=== PATIENT | female | born 1990 | race Caucasian/White ===

== ENCOUNTER 2020-01-22 13:03 | Emergency (ER) | payer BC ==
[~2020-01-22] VITALS: Ht 157.5 cm; Wt 70.0 kg
--- NOTE | 2020-01-22 14:00 | NUR ---
Lynda GUZMAN at bedside.
--- NOTE | 2020-01-22 14:10 | NUR ---
Reina - [facility] - [phone] for updates.
[2020-01-22 14:30] LABS: BASOPHILS % (AUTO) 0.3 % (0-1); EOSINOPHILS % (AUTO) 0.5 % (0-6); HEMATOCRIT 37.9 % (35.0-45.0); HEMOGLOBIN 12.4 g/dl (12.0-16.0); LYMPHOCYTES # (AUTO) 1.3 X10'3 (1.1-4.8); LYMPHOCYTES % (AUTO) 13.9 % (21-51); MEAN CORPUSCULAR HEMOGLOBIN 29.1 PG (27.0-31.0); MEAN CORPUSCULAR HGB CONC 32.8 g/dL (33.0-36.5); MEAN CORPUSCULAR VOLUME 88.9 FL (78-98); MEAN PLATELET VOLUME 8.4 FL (7.4-10.4); MONOCYTES # (AUTO) 0.4 X10'3 (0-0.9); MONOCYTES % (AUTO) 4.3 % (2-12); NEUTROPHILS # (AUTO) 7.4 X10'3 (1.8-7.7); PLATELET COUNT 337 X10'3 (140-440); RED BLOOD COUNT 4.27 X10'6 (4.20-5.60); RED CELL DISTRIBUTION WIDTH 13.6 % (11.5-14.5); WHITE BLOOD COUNT 9.1 X10'3 (4.5-11.0)
[2020-01-22 14:46] LABS: ALANINE AMINOTRANSFERASE 23 U/L (12-78); ALBUMIN 3.2 G/DL (3.4-5.0); ALBUMIN/GLOBULIN RATIO 0.9 (1.1-1.5); ALKALINE PHOSPHATASE 71 IU/L (46-116); ANION GAP 7 (8-16); ASPARTATE AMINO TRANSFERASE 13 U/L (10-37); BILIRUBIN,TOTAL 0.5 MG/DL (0.1-1.0); BLOOD UREA NITROGEN 9 MG/DL (7-18); BUN/CREATININE RATIO 13.4 (6.6-38.0); CALCIUM 9.1 MG/DL (8.5-10.1); CHLORIDE 105 MMOL/L (99-107); CREATININE 0.67 MG/DL (0.40-0.90); GLUCOSE 158 MG/DL (70-104); SODIUM 137 MMOL/L (135-145); TOTAL CARBON DIOXIDE 24.6 MMOL/L (24-32); TOTAL PROTEIN 6.9 G/DL (6.4-8.2); eGFR > 90 ML/MIN
--- NOTE | 2020-01-22 14:54 | NUR ---
US in at bedside.
--- NOTE | 2020-01-22 15:00 | NUR ---
patient up to the bathroom.
--- NOTE | 2020-01-22 15:03 | NUR ---
Pt up to restroom.
[2020-01-22 15:11] LABS: LIPASE 89 U/L (73-393)
[2020-01-22 15:19] LABS: BETA HCG,QUANTITATIVE 20810 mIU/ml
[2020-01-22 15:53] LABS: CLARITY,URINE SLIGHTLY CLOUDY (Clear); COLOR,URINE YELLOW (Yellow); GLUCOSE, URINE >=1000 mg/dl (Neg); KETONES,URINE 15 mg/dl (Neg); LEUKOCYTE ESTERASE ,URINE SMALL (Neg); NITRITES, URINE NEGATIVE (Neg); OCCULT BLOOD,URINE SMALL (Neg); PH,URINE 7.5 (4.8-8.0); PROTEIN,URINE NEGATIVE (Neg); URINE HCG POSITIVE (NEG); UROBILINOGEN,URINE 0.2 E.U/dL (0.2-1.0)
[2020-01-22 16:04] LABS: UA COLLECTION TYPE CLN CATCH MIDSTREAM
[2020-01-22 16:09] LABS: BACTERIA,URINE FEW /HPF (Neg); RBC,URINE 0-2 /HPF (0-2); SQUAMOUS EPITHELIAL CELL,UR MANY /LPF (FEW)
--- NOTE | 2020-01-22 16:11 | NUR ---
UA REJECTED FOR CULTURE
[2020-01-22] MEDS ORDERED: CEPH500C5 PO (16:15)
[2020-01-22 16:41] VITALS: BP 112/70
== END 2020-01-22 16:43 | disposition home or self-care (01) ==
LOC: ER 13:03
DX: O26.891 Other specified pregnancy related conditions, first trimester (principal); N83.209 Unspecified ovarian cyst, unspecified side; O24.911 Unspecified diabetes mellitus in pregnancy, first trimester; O00.01 Abdominal pregnancy with intrauterine pregnancy; O46.91 Antepartum hemorrhage, unspecified, first trimester; O23.41 Unspecified infection of urinary tract in pregnancy, first trimester; Z79.899 Other long term (current) drug therapy; Z3A.09 9 weeks gestation of pregnancy
CPT/HCPCS: 36415; 76801; 80053; 81001; 81025; 82948; 83690; 84702; 85025; 99285